=== PATIENT | male | born 1945 | race Caucasian/White ===

== ENCOUNTER 2023-06-16 18:09 | Emergency (ER) | payer OTHER ==
[2023-06-16 18:23] VITALS: BP 134/75; PULSE 85; RESP 19; TEMP 97.7; BMI 25.7
[2023-06-16] MEDS: SODIUM PHOSPHATE/NA BIPHOS 133 ML ENEMA RC ONE (20:56)
[2023-06-16 21:04] LABS: BASO % 0.5 % (0-2.0); EOS % 0.9 % (0-4.5); HEMATOCRIT 34.4 % (35.4-49); HEMOGLOBIN 11.8 GM/dL (11.7-16.9); LYMPH % 20.9 % (8-40); MCH 29.4 pg (25.7-33.7); MCHC 34.2 g/dl (32.0-35.9); MEAN CELL VOLUME 85.8 fl (80-96); MEAN PLT VOLUME 8.2 fl (7.5-11.1); MONO % 7.5 % (3.8-10.2); NEUT % 70.2 % (42.8-82.8); PLATELET COUNT 270 10^3/uL (134-434); RBC 4.01 M/mm3 (4.00-5.60); RDW 16.2 % (11.9-15.9); WHITE BLOOD COUNT 7.5 K/mm3 (4.0-10.0)
[2023-06-16 21:33] LABS: POTASSIUM 3.7 mmol/L (3.5-5.1)
[2023-06-16 21:35] LABS: ALBUMIN 3.4 g/dl (3.4-5.0); BLOOD UREA NITROGEN 16.6 mg/dL (7-18); CALCIUM 9.5 mg/dL (8.5-10.1)
[2023-06-16 21:38] LABS: CREATININE 1.2 mg/dL (0.55-1.3)
[2023-06-16 21:40] LABS: BILIRUBIN,TOTAL 0.4 mg/dL (0.2-1)
== END 2023-06-16 22:59 | disposition home or self-care (01) ==
LOC: JER 18:09
DX: K59.00 Constipation, unspecified (principal)
CPT/HCPCS: 36415; 74018-TC-FY; 80053; 85025; 93005; 93010; 99285-25

== ENCOUNTER 2023-08-19 15:40 | Emergency (ER) | payer OTHER ==
[2023-08-19 15:51] VITALS: PULSE 69; RESP 20; BMI 25.7
[2023-08-19] MEDS ORDERED: DIPHTH,PERTUSS(ACELL),TET 0.5 ML DISP.SYRIN IM ONE (18:36)
[2023-08-19] MEDS: DIPHTH,PERTUSS(ACELL),TET 0.5 ML DISP.SYRIN IM ONE (18:42)
[2023-08-19 18:48] VITALS: BP 150/85; TEMP 98
== END 2023-08-19 19:15 | disposition home or self-care (01) ==
LOC: FER 15:40
PROC: 3E0234Z Introduction of Serum, Toxoid and Vaccine into Muscle, Percutaneous Approach (ICD-10-PCS; principal; 2023-08-19)
DX: S51.812A Laceration without foreign body of left forearm, initial encounter (principal); S80.02XA Contusion of left knee, initial encounter; S00.81XA Abrasion of other part of head, initial encounter; S60.512A Abrasion of left hand, initial encounter; W01.198A Fall on same level from slipping, tripping and stumbling with subsequent striking against other object, initial encounter
CPT/HCPCS: 70450-TC; 71045-TC-FY; 72125-TC; 73070-TC-LT-FY; 73090-TC-LT-FY; 73130-TC-LT-FY; 73130-TC-RT-FY; 73562-TC-LT-FY; 90471; 90715; 99284-25

== ENCOUNTER 2023-11-05 15:24 | Emergency (ER) | payer OTHER ==
[2023-11-05 16:24] VITALS: BP 134/82; PULSE 72; RESP 18; TEMP 98.7; BMI 31.1
[2023-11-05 17:07] LABS: HEMATOCRIT 39.1 % (35.4-49); HEMOGLOBIN 12.6 G/dL (11.7-16.9); MCH 28.4 pg (25.7-33.7); MCHC 32.3 g/dl (32.0-35.9); MEAN CELL VOLUME 87.8 fl (80-96); MEAN PLT VOLUME 8.9 fl (7.5-11.1); PLATELET COUNT 293.8 10^3/uL (134-434); RBC 4.45 10^6/uL (4.00-5.60); RDW 15.4 % (11.9-15.9); WHITE BLOOD COUNT 5.2 10^3/uL (4.0-10.8)
[2023-11-05 17:09] LABS: ALBUMIN 4.1 g/dl (3.4-5.0); ALK PHOS 127 U/L (45-117); ANION GAP 8 mmol/L (4-13); BILIRUBIN,TOTAL 0.3 mg/dl (0.2-1); CALCIUM 9.5 mg/dl (8.5-10.1); CHLORIDE 105 mmol/L (98-107); CO2 26 mmol/L (21-32); CREATININE 1.4 mg/dl (0.6-1.3); GLUCOSE,RANDOM 145 mg/dl (74-106); POTASSIUM 3.8 mmol/L (3.5-5.1); SGOT/AST 17 U/L (15-37); SGPT/ALT 14 U/L (7-52); SODIUM 139 mmol/L (136-145); TOT PROT 6.8 g/dl (6.4-8.2)
[2023-11-05 17:59] LABS: PLATELET ESTIMATE SLT INCREASE
[2023-11-05 18:54] LABS: EPITHELIAL CELLS 0-5 /hpf
== END 2023-11-05 18:08 | disposition home or self-care (01) ==
LOC: FER 15:24
DX: S00.01XA Abrasion of scalp, initial encounter (principal); R79.89 Other specified abnormal findings of blood chemistry; W06.XXXA Fall from bed, initial encounter
CPT/HCPCS: 36415; 70450-TC; 71046-TC-FY; 72125-TC; 72170-TC-FY; 80053; 80307; 81003; 81015; 84484; 85027; 93005; 99285-25